=== PATIENT | male | born 1995 | race Caucasian/White ===

== ENCOUNTER → 2020-08-14 16:54 | Outpatient (CLI) | payer OTHER, SELFPAY ==
[2020-08-14 18:18] LABS: Creatinine Urine Random 105.6 mg/dL
[2020-08-14 18:49] LABS: Microalbumi Creatinin Ratio Ur 247.1 ug/mg CR (<30); Microalbumin Urine Random 26.1 mg/dL (0-1.6)
== END ==
PROVIDERS: PCP Family Medicine; Referring Provider Family Medicine; Visit Provider Family Medicine
DX: E11.9 Type 2 diabetes mellitus without complications (principal); F25.9 Schizoaffective disorder, unspecified; Z79.4 Long term (current) use of insulin
CPT/HCPCS: 82043; 82570